=== PATIENT | male | born 1955 | race Caucasian/White ===

== ENCOUNTER → 2016-12-23 | Outpatient (CLI) | payer OTHER ==
[~2016-12-23] MED LIST: AMLO5TAB2 PO; PRAV20TA2 PO; VALS1TAB28 PO
[2016-12-23 11:04] LABS: HEMATOCRIT 43.1 % (39.2-51.8); HEMOGLOBIN 15.1 g/dL (13.7-18.0); WHITE BLOOD COUNT 4.7 x10^3/uL (3.4-10)
[2016-12-23 11:14] LABS: ASPARTATE AMINO TRANSFERASE 11 U/L (15-37); BLOOD UREA NITROGEN 17 mg/dL (7-18)
== END | disposition home or self-care (01) ==
LOC: STAR 10:13
PROVIDERS: ATTEND Surgery
DX: Z01.818 Encounter for other preprocedural examination (principal)
CPT/HCPCS: 36415; 80053; 85025; 93005

== ENCOUNTER 2017-01-01 08:24 | Day surgery (SDC) | payer OTHER ==
[2016-12-23 10:39] VITALS: BP 148/96
[~2017-01-01] VITALS: Ht 172.7 cm; Wt 108.0 kg
[2017-01-01] MEDS ORDERED: LACTATED RINGERS 1,000 ML IV SCH (09:17)
[2017-01-01] MEDS ORDERED: LIDOCAINE 1%, 2ML ONE (09:19)
[2017-01-01] MEDS ORDERED: LIDOCAINE 1%, 2ML SQ PRN (09:30)
[2017-01-01] MEDS ORDERED: ONDANSETRON 2MG/ML, 2ML ONE (09:43)
[2017-01-01] MEDS ORDERED: DEXAMETHASONE 4 MG/ML, 1ML ONE ×2 (09:43)
[2017-01-01] MEDS ORDERED: CEFAZOLIN 1,000 MG ONE ×3 (09:43→10:21)
[2017-01-01] MEDS ORDERED: PROPOFOL 10 MG/ML, 20ML ONE ×3 (09:43→10:33)
[2017-01-01] MEDS ORDERED: MIDAZOLAM 1 MG/ML, 2ML ONE (09:44)
[2017-01-01] MEDS ORDERED: FENTANYL PF 250 MCG/5ML ONE (09:44)
[2017-01-01] MEDS ORDERED: BUPIVACAINE/PF 0.5% ONE (09:53)
[2017-01-01] MEDS ORDERED: EPINEPHRINE 1 MG/ML, 1ML ONE (09:53)
[2017-01-01] MEDS ORDERED: SUCCINYLCHOLINE 20 MG/ML, 10ML ONE (10:18)
[2017-01-01] MEDS ORDERED: OXYcodone 5 MG/5 ML ORAL.SOL UDC PO PRN (11:00)
[2017-01-01] MEDS ORDERED: ACETAMINOPHEN 325 MG TABLET PO PRN (11:00)
[2017-01-01] MEDS ORDERED: FENTANYL PF 100 MCG/2ML IV PRN (11:00)
[2017-01-01] MEDS ORDERED: PROMETHAZINE 25 MG/ML, 1ML IV PRN (11:00)
== END 2017-01-01 13:36 ==
LOC: OUT 08:24
PROVIDERS: ATTEND Surgery
DX: C43.59 Malignant melanoma of other part of trunk (principal); E78.00 Pure hypercholesterolemia, unspecified; I10 Essential (primary) hypertension; Z79.82 Long term (current) use of aspirin; Z98.890 Other specified postprocedural states; Z87.891 Personal history of nicotine dependence
CPT/HCPCS: 11606; 88307; J0171; J0330; J0690; J1100; J2405; J2704; J3010; J3490; J7120; J2250